=== PATIENT | female | born 1990 | race Caucasian/White ===

== ENCOUNTER 2017-09-27 19:38 | Emergency (ER) | payer OTHER, BC ==
[2017-09-27 19:54] VITALS: BP 124/67; PULSE 91; RESP 18; TEMP 98.3; O2SAT 98
--- NOTE | 2017-09-27 20:44 | RADRPT ---
EXAM DATE/TIME: 09/27/2017 20:12 [place] COMPARISON: No previous studies available for comparison. INDICATIONS : Right hand, 3rd digit pain after slamming finger in gate. MEDICAL HISTORY : None. SURGICAL HISTORY : None. ENCOUNTER: Initial ACUITY: 1 day PAIN SCORE: 7/10 LOCATION: Right hand, 3rd digit, PIP joint. FINDINGS: Examination of the third digit of the right hand demonstrates no evidence of fracture or dislocation. No radiopaque foreign bodies are seen. The soft tissues are intact. CONCLUSION: No evidence of recent bony injury. Froilan Wetzel MD on September 27, 2017 at 20:42 Board Certified Radiologist. This report was verified electronically.
[2017-09-27] MEDS ORDERED: IBUP-232 PO (22:28)
--- NOTE | 2017-09-27 22:29 | PD ---
HPI Chief Complaint: Injury Time Seen by Provider: 22:21 Travel History International Travel<30 days: No Contact w/Intl Traveler<30days: No Traveled to known affect area: No History of Present Illness HPI 27-year-old female presents to the emergency department for evaluation of right third finger injury that occurred today while at work. She states she slammed in a door at work. Patient reports reduced range of motion due to pain. She denies any other injury. Current pain is 7/10 to the right third PIP joint that radiates down the finger. Exacerbating factor is movement. No alleviating factor is keeping it still. Mild severity. PFSH Social History Alcohol Use: No Tobacco Use: No Substance Use: No Review of Systems Except as stated in HPI: all other systems reviewed are Neg Physical Exam Narrative GENERAL: Well-nourished, well-developed female patient, afebrile. SKIN: Focused skin assessment warm/dry. HEAD: Normocephalic. Atraumatic. EYES: No scleral icterus. No injection or drainage. NECK: Supple, trachea midline. No JVD or lymphadenopathy. CARDIOVASCULAR: Regular rate and rhythm without murmurs, gallops, or rubs. RESPIRATORY: Breath sounds equal bilaterally. No accessory muscle use. Lungs sounds are clear to auscultation. GASTROINTESTINAL: Abdomen soft, non-tender, nondistended. MUSCULOSKELETAL: No cyanosis, or edema. Patient has tenderness over right third PIP joint. No lacerations or abrasions. She is reduced range of motion of this joint due to pain. BACK: Nontender without obvious deformity. No CVA tenderness. Data Data Last Documented VS Vital Signs Date Time Temp Pulse Resp B/P (MAP) Pulse Ox O2 Delivery O2 Flow Rate FiO2 09/27/17 19:54 98.3 91 18 124/67 (86) 98 Orders Orders Finger ([place]) (09/27/17 ) MDM Medical Decision Making Medical Screen Exam Complete: Yes Emergency Medical Condition: Yes Medical Record Reviewed: Yes Interpretation(s) Last Impressions Finger X-Ray 09/27/17 0000 Signed Impressions: Service Date/Time: Wednesday, September 27, 2017 20:12 - CONCLUSION: No evidence of recent bony injury. Froilan Wetzel MD Differential Diagnosis Fracture versus dislocation versus contusion Narrative Course 27-year-old female presents to the emergency department for evaluation of right third finger injury that occurred today. X-ray shows no acute bony injury. Patient will be discharged with a prescription for ibuprofen for pain. She is instructed ice and follow-up with her primary care physician. Patient states she is allergic to ketorolac, but states she can take other anti-inflammatories. The patient was discharged in stable condition with instructions, including return instructions and follow up instructions. Diagnosis Primary Impression: Finger contusion Qualified Codes: S60.031A - Contusion of right middle finger without damage to nail, initial encounter Referrals: Primary Care Physician Patient Instructions: Contusion in Adults (ED), General Instructions Departure Forms: Tests/Procedures, Work Release Enter return to work date: Sep 29, 2017 Additional Instructions: Ice for 20 minutes 4-5 times daily. Take ibuprofen as directed as needed with food for pain. Follow-up with your worker's comp physician. Return to the emergency department for any acute worsening of symptoms. Med/Other Pt SpecificInfo: Prescription(s) given Scripts Ibuprofen (Ibuprofen) 600 Mg Tab 600 MG PO TID Y for PAIN SCALE 1 TO 10, #21 TAB 0 Refills Prov: Vicky Tomlinson 09/27/17 Disposition: 01 DISCHARGE HOME Condition: Stable Vicky Tomlinson Sep 27, 2017 22:29
[2017-09-27] MEDS ORDERED: IBUPROFEN 600 MG TAB PO ONE (22:30)
== END 2017-09-27 23:01 | disposition home or self-care (01) ==
LOC: NEPK 19:38
DX: S60.031A Contusion of right middle finger without damage to nail, initial encounter (principal); W23.0XXA Caught, crushed, jammed, or pinched between moving objects, initial encounter; Z88.8 Allergy status to other drugs, medicaments and biological substances
CPT/HCPCS: 73140; 99283